=== PATIENT | female | born 1965 | race Asian ===

== ENCOUNTER → 2018-01-08 | Outpatient (CLI) | payer OTHER ==
[~2018-01-08] MED LIST: ALPR0.25 PO; CARI350T PO; DIOVAN PO; JANUVIA PO; METF10002 PO; METO10TA82 PO; NORCO PO; OMEP40CA3 PO; OXYC500S PO; SIMVASTATIN PO; ZOLP10TA PO
== END | disposition home or self-care (01) ==
LOC: CFH 10:23
PROVIDERS: ATTEND Orthopaedic Surgery Orthopaedic Surgery of the Spine
DX: M51.16 Intervertebral disc disorders with radiculopathy, lumbar region (principal); M96.1 Postlaminectomy syndrome, not elsewhere classified
CPT/HCPCS: 72148

== ENCOUNTER 2020-08-22 12:22 | Emergency (ER) | payer OTHER ==
[~2020-08-22] VITALS: Ht 154.9 cm; Wt 116.0 kg
[2020-08-22 12:32] VITALS: BP 134/106
[2020-08-22 13:02] LABS: MICROSCOPIC INDICATED
--- NOTE | 2020-08-22 13:23 | NUR ---
BREAK RN: LAB AT BEDSIDE. PT THEN TAKEN TO IMAGING.
[2020-08-22 13:29] LABS: BASOPHILS # (AUTO) 0.01 x10^3/uL (0-0.1); BASOPHILS % (AUTO) 0 % (0-1); EOSINOPHILS # (AUTO) 0.02 x10^3/uL (0-0.4); EOSINOPHILS % (AUTO) 0 % (1-7); LYMPHOCYTES # (AUTO) 0.91 x10^3/uL (1-3.4); LYMPHOCYTES % (AUTO) 10 % (22-44); MD NO; MEAN CORPUSCULAR HEMOGLOBIN 27.8 pg (27.0-34.8); MEAN CORPUSCULAR HGB CONC 31.7 g/dL (32.4-35.8); MEAN PLATELET VOLUME 7.3 fL (7.4-10.4); MONOCYTES # (AUTO) 0.45 x10^3/uL (0.2-0.8); MONOCYTES % (AUTO) 5 % (2-9); NEUTROPHILS # (AUTO) 7.52 x10^3/uL (1.8-6.8); NEUTROPHILS % (AUTO) 84 % (42-75); PLATELET COUNT 322 x10^3/uL (130-400); RED BLOOD COUNT 4.93 x10^6/uL (3.82-5.3); RED CELL DISTRIBUTION WIDTH 14.2 % (9.6-15.2)
[2020-08-22] MEDS ORDERED: KETOROLAC 30 MG/1 ML IM ONE (13:30)
[2020-08-22 13:36] LABS: ALANINE AMINOTRANSFERASE 33 U/L (12-78); ALBUMIN 3.6 g/dL (3.4-5.0); ANION GAP 7 mmol/L (5-15); CALCIUM 9.4 mg/dL (8.5-10.1); CHLORIDE 107 mmol/L (98-107)
[2020-08-22 13:39] LABS: ALKALINE PHOSPHATASE 61 U/L (45-117); BILIRUBIN,TOTAL 0.3 mg/dL (0.2-1.0); CREATININE 0.88 mg/dL (0.55-1.02); TOTAL PROTEIN 7.9 g/dL (6.4-8.2)
--- NOTE | 2020-08-22 13:46 | NUR ---
ERP AT BEDSIDE.
[2020-08-22] MEDS ORDERED: HYDR-3246 PO (14:03)
[2020-08-22] MEDS ORDERED: FENO43CA6 PO (14:03)
[2020-08-22] MEDS ORDERED: DAPA5TAB PO (14:03)
[2020-08-22] MEDS ORDERED: CYCL-259 PO (14:03)
--- NOTE | 2020-08-22 14:13 | NUR ---
Patient/Caregiver given discharge instructions and they have confirmed that they understand the instructions. Patient ambulatory with steady gait.
== END 2020-08-22 14:14 | disposition home or self-care (01) ==
LOC: ED 13:09
DX: R10.84 Generalized abdominal pain (principal); K59.00 Constipation, unspecified; R33.9 Retention of urine, unspecified; R00.0 Tachycardia, unspecified; E11.9 Type 2 diabetes mellitus without complications; G89.29 Other chronic pain
CPT/HCPCS: 36415; 74021; 80053; 81001; 83605; 83690; 85025; 87077; 87086; 87186; 99284